=== PATIENT | male | born 1960 | race African-American/Black ===

== ENCOUNTER 2017-10-30 08:07 | Day surgery (SDC) | payer OTHER ==
[~2017-10-30 08:07] MED LIST: Acetaminophen/HYDROcodone 325-5 MG Tab PO PRN; Bupivacaine 0.25%/EPINEPHrine 1:200,000 10 ML SDV INJECT ONE; Bupivacaine 25%/EPINEPHrine/PF 30 ML ONE; Lactated Ringers 1,000 ML IV SCH; Lidocaine 2% 5 ML SDV ONE; Midazolam 1 MG/ML 2 ML SDV ONE; Ondansetron 4 MG/2 ML SDV ONE; Propofol 200 MG/20 ML SDV ONE; ceFAZolin 2 GM in Premix Bag 1 BAG IV ONE; fentaNYL 100 MCG/2 ML SDV ONE
--- NOTE | 2017-10-30 09:11 | PCM.PREANE ---
Preanesthetic Assessment - Anesthesia/Transfusion/Family Hx Anesthesia History: Prior Anesthesia Without Reaction Family History of Anesthesia Reaction: No Transfusion History: No Prior Transfusion(s) - Review of Systems General: No Symptoms Pulmonary: No Symptoms Cardiovascular: No Symptoms Gastrointestinal: No Symptoms Neurological: No Symptoms Other: Reports: None - Physical Assessment NPO Status Date: 10/29/17 NPO Status Time: 21:00 O2 Sat by Pulse Oximetry: 97 Respiratory Rate: 16 Vital Signs: Last Vital Signs Temp 36.4 C 10/30/17 08:45 Pulse 73 10/30/17 08:45 Resp 16 10/30/17 08:45 BP 131/80 10/30/17 08:45 Pulse Ox 97 10/30/17 08:45 Height: 1.63 m Weight: 55.338 kg ASA Class: 2 Mental Status: Alert & Oriented x3 Dentition: Reports: Normal Dentition - Allergies Allergies/Adverse Reactions: Allergies Allergy/AdvReac Type Severity Reaction Status Date / Time No Known Allergies Allergy Verified 10/28/17 09:03 - Anesthesia Plan Pre-Op Medication Ordered: None - Acknowledgements Anesthesia Type Planned: General Anesthesia Pt an Appropriate Candidate for the Planned Anesthesia: Yes Alternatives and Risks of Anesthesia Discussed w Pt/Guardian: Yes Pt/Guardian Understands and Agrees with Anesthesia Plan: Yes PreAnesthesia Questionnaire HEENT History: Reports: Other (See Below) Other HEENT History: has upper and lower dentures Musculoskeletal History: Reports: Fracture Other Musculoskeletal History: left arm - Past Surgical History Head Surgeries/Procedures: Reports: None Musculoskeletal Surgical History: Reports: ORIF Other Musculoskeletal Surgeries/Procedures:: left arm with tendon repair (has hardware) - SUBSTANCE USE Smoking Status *Q: Never Smoker Recreational Drug Use History: No - HOME MEDS Home Medications: Home Meds . [No Known Home Meds] 10/28/17 [History] - CURRENT (IN HOUSE) MEDS Current Meds: Current Medications Hydrocodone Bitart/Acetaminophen (Ponce 325-5 Mg) 1 tab PO Q4H PRN PRN Reason: Pain Lactated Ringer's (Ringers, Lactated) 1,000 mls @ 125 mls/hr IV ASDIRECTED MUNA Last Admin: 10/30/17 08:57 Dose: 125 mls/hr Discontinued Medications Bupivacaine HCl/Epinephrine Bitart (Marcaine 0.25%/Epinephrine 1:200,000) 10 ml INJECT ONETIME ONE Stop: 10/30/17 08:01 Fentanyl (Sublimaze) Confirm Administered Dose 100 mcg .ROUTE .STK-MED ONE Stop: 10/30/17 07:18 Cefazolin Sodium/Dextrose 2 gm (/ Premix) 50 mls @ 100 mls/hr IV ONETIME ONE Stop: 10/30/17 08:29 Bupivacaine HCl/Epinephrine Bitart (Sensorc Mpf 0.25%-Epi 1:761060) Confirm Administered Dose 30 mls @ as directed .ROUTE .STK-MED ONE Stop: 10/30/17 07:35 Lidocaine (Xylocaine-Mpf 2%) Confirm Administered Dose 5 ml .ROUTE .STK-MED ONE Stop: 10/30/17 07:18 Midazolam HCl (Versed 1 Mg/Ml) Confirm Administered Dose 2 mg .ROUTE .STK-MED ONE Stop: 10/30/17 07:18 Ondansetron HCl (Zofran) Confirm Administered Dose 4 mg .ROUTE .STK-MED ONE Stop: 10/30/17 07:18 Propofol (Diprivan 20 Ml) Confirm Administered Dose 200 mg .ROUTE .STK-MED ONE Stop: 10/30/17 07:18
[2017-10-30] MEDS ORDERED: ceFAZolin/Dextrose,Iso-Osmotic 2 GM/50 ML Duplex Bag IV ONE (09:21)
[2017-10-30] MEDS ORDERED: fentaNYL 100 MCG/2 ML SDV IVPUSH PRN (10:49)
--- NOTE | 2017-10-30 11:31 | PCM.POSTAN ---
POST ANESTHESIA ASSESSMENT - MENTAL STATUS Mental Status: Alert, Oriented - RESPIRATORY Respiratory Status: Respiratory Rate WNL, Airway Patent, O2 Saturation Stable - CARDIOVASCULAR CV Status: Pulse Rate WNL, Blood Pressure Stable - GASTROINTESTINAL GI Status: No Symptoms - POST OP HYDRATION Hydration Status: Adequate & Stable
--- NOTE | 2017-10-30 12:14 | PCM48HPAN ---
Post Anesthesia Note - EVALUATION WITHIN 48HRS OF ANESTHETIC Vital Signs in Normal Range: Yes Patient Participated in Evaluation: Yes Respiratory Function Stable: Yes Airway Patent: Yes Cardiovascular Function Stable: Yes Hydration Status Stable: Yes Pain Control Satisfactory: Yes Nausea and Vomiting Control Satisfactory: Yes Mental Status Recovered: Yes Resp Rate: 13
--- NOTE | 2017-11-02 12:48 | PCM.OPNOTE ---
- General Post-Op/Procedure Note Date of Surgery/Procedure: 10/30/17 Operative Procedure(s): right middle finger and ring finger amputations s/p frostbite Pre Op Diagnosis: frostbite with tissue necrosis of the middle and ring fingertips right Post-Op Diagnosis: Same Primary Surgeon: Poornima French Telecommunication Engineer: Barb Parker Complications: None Condition: Good
--- NOTE | 2017-11-03 00:22 | OR ---
SURGEON: MARIZOL PABON MD DATE OF PROCEDURE: 10/30/2017 PREOPERATIVE DIAGNOSIS: Frostbite with tissue necrosis of the middle and ring fingertips, right. POSTOPERATIVE DIAGNOSIS: Frostbite with tissue necrosis of the middle and ring fingertips, right. PROCEDURE: Right middle finger and ring finger amputation status post frostbite. TECHNOLOGY PROJECT MANAGER: SHIRA Parekh. REASON TECHNOLOGY PROJECT MANAGER WAS NECESSARY: Prepping, draping, and closure assistance. INDICATION: The patient is seen today in re-evaluation after conservative management of his frostbite with tissue necrosis of the middle and ring fingertips. He has gone on to do well with regeneration as much as possible and the tips have mummified. We discussed risks and benefits of amputation at this time, and he was in agreement to proceed. Risks were including, but not limited to, bleeding, infection, damage to underlying or overlying structures, possible need for future interventions, and possible scarring. PROCEDURE IN DETAIL: After informed consent was obtained and placed on the chart, the patient was brought to the operating theater and laid in the supine position. After adequate general anesthesia was obtained, the area was prepped and draped and a time-out was completed to confirm side and site. Once adequately confirmed, the area had been prepped and draped with Betadine cleansing solution and the arm was then exsanguinated and the tourniquet was insufflated to 200 mmHg. The mummified fingertip was excised with close margins to allow viable tissue. Hemostasis was obtained and the underlying bone was rongeured back to the tendinous insertions attempting to wean these in place. Once adequate necrotic tissue was removed, the skin flaps were then reapproximated over the distal end of the proximal and distal phalanx. These were sutured in place using 4-0 and 5-0 chromic stitches after copious irrigation. Once adequately closed, the wounds were dressed with Xeroform, fluffs, and a Kerlix gauze dressing. The patient tolerated this well on both the middle finger and ring finger. All counts and needles were correct at the end of the case. FOLLOW UP: The patient will see us in 10-14 days, sooner with any issues or concerns. Script given for pain control. JESSE / MODJudy /[id number] MTDD
== END 2017-10-30 12:00 | disposition home or self-care (01) ==
LOC: MW.SDS 08:07
PROVIDERS: ATTEND Plastic Surgery
DX: T34.531A Frostbite with tissue necrosis of right finger(s), initial encounter (principal); X31.XXXA Exposure to excessive natural cold, initial encounter
CPT/HCPCS: 26951; J0690; J2250; J2405; J3010; J7120; 01830; J2704